=== PATIENT | female | born 1990 | race Caucasian/White ===

== ENCOUNTER → 2017-07-10 | Outpatient (CLI) | payer BC ==
--- NOTE | 2017-07-10 19:45 | Diagnostic Imaging Report ---
EXAMINATION: Left breast ultrasound. INDICATION: Left breast nodule followup. FINDINGS: Hypoechoic circumscribed nodule at the 1:30 o'clock position, 7 cm from the nipple, is again seen measuring 0.6 x 0.3 x 0.5 cm. It has no internal vascularity. It is stable from 01/09/2015 exam, suggestive of a benign etiology. IMPRESSION: A 0.6 cm nodule at 1:30 o'clock position is stable from 2015 suggestive of benign etiology. Dictated by: Dictated on workstation # [id number]
== END ==
LOC: RAD 09:40
PROVIDERS: ATTEND Nurse Practitioner Family
DX: N63.20 Unspecified lump in the left breast, unspecified quadrant (principal)
CPT/HCPCS: 76642